=== PATIENT | female | born 1955 | race Caucasian/White ===

== ENCOUNTER 2020-11-11 10:30 | Observation (INO) ==
[2020-11-11] MEDS ORDERED: Pantoprazole VIAL 40 MG VIAL IV ONE (10:45)
[2020-11-11] MEDS ORDERED: Lactated Ringers 1000 ml BAG 1,000 ML IV ONE (10:45)
[2020-11-11 10:54] LABS: ABS Lymphocytes 1.7 10^3/ul (1.0-4.8); ABS Monocytes 0.5 10^3/ul (0-0.8); ABS Neutrophils 5.7 10^3/ul (1.5-7.7); Eosinophil % 0.1 %; Hematocrit 33 % (35-47); Hemoglobin 11.2 g/dL (12.0-16.0); Lymphocyte % 20.9 %; Mean Corpuscular HGB Conc 35 g/dL (31-36); Mean Corpuscular Hemoglobin 32 pg (27-31); Mean Corpuscular Volume 93 fL (80-97); Mean Platelet Volume 7.2 fL (7.4-10.4); Nucleated Red Blood Cells % 0.1; Platelet Count 261 10^3/uL (150-450); Red Blood Count 3.48 10^6 /uL (3.70-4.87); Red Cell Distribution Width 12 % (10-15); White Blood Count 7.9 10^3/uL (3.5-10.8)
[2020-11-11 11:10] LABS: ALT 11 U/L (7-52); AST 15 U/L (13-39); Albumin 3.9 g/dL (3.2-5.2); Albumin/Globulin Ratio 1.7 (1-3); Alkaline Phosphatase 68 U/L (35-149); Anion Gap 6 mmol/L (2-11); Blood Urea Nitrogen 27 mg/dL (6-24); CO2 Carbon Dioxide 26 mmol/L (22-32); Calcium 8.7 mg/dL (8.6-10.3); Chloride 102 mmol/L (101-111); EGFR African American 116.5 (>60); EGFR Non-African American 96.3 (>60); Globulin 2.3 g/dL (2-4); Glucose 103 mg/dL (70-100); Sodium 134 mmol/L (135-145); Total Protein 6.2 g/dL (6.4-8.9)
[2020-11-11 11:15] LABS: Activated Partial Thrombo Time 24.7 seconds (26.0-38.0); INR 1.15 (0.86-1.15)
[2020-11-11] MEDS ORDERED: Ondansetron 4 mg VIAL 2 MG/ML 2 ml VIAL IV ONE (11:15)
[2020-11-11 11:18] LABS: Troponin I 0.03 ng/mL (<0.03)
[2020-11-11 11:35] LABS: Rapid COVID-19 Molecular Undetected (Undetected)
[2020-11-11] MEDS ORDERED: Pantoprazole 80 mg in NS BAG 80 MG/250 ML BAG IV ONE (13:55)
[2020-11-11] MEDS ORDERED: Lactated Ringers 1000 ml BAG 1,000 ML IV SCH (15:00)
[2020-11-11 20:19] LABS: Hematocrit 28 % (35-47); Hemoglobin 9.9 g/dL (12.0-16.0)
[2020-11-11] MEDS ORDERED: Pantoprazole 80 mg in NS BAG 80 MG/250 ML BAG IV SCH (23:55)
[2020-11-12] MEDS: Pantoprazole 80 mg in NS BAG 80 MG/250 ML BAG IV SCH ×2 (01:54→13:49)
[2020-11-12 02:24] LABS: Hematocrit 26 % (35-47); Hemoglobin 9.1 g/dL (12.0-16.0)
[2020-11-12] MEDS ORDERED: fentaNYL 100 mcg/2 ml 50 MCG/ML VIAL ONE (08:07)
[2020-11-12] MEDS ORDERED: Midazolam 10 mg/10 ml VIAL 1 mg/ml 10 ml VIAL (10 mg) ONE (08:07)
[2020-11-12 10:06] LABS: ABS Lymphocytes 1.7 10^3/ul (1.0-4.8); ABS Monocytes 0.3 10^3/ul (0-0.8); ABS Neutrophils 2.2 10^3/ul (1.5-7.7); Eosinophil % 1.1 %; Hematocrit 27 % (35-47); Hemoglobin 9.4 g/dL (12.0-16.0); Lymphocyte % 40.1 %; Mean Corpuscular HGB Conc 34 g/dL (31-36); Mean Corpuscular Hemoglobin 32 pg (27-31); Mean Corpuscular Volume 94 fL (80-97); Mean Platelet Volume 7.4 fL (7.4-10.4); Nucleated Red Blood Cells % 0.1; Platelet Count 220 10^3/uL (150-450); Red Blood Count 2.92 10^6 /uL (3.70-4.87); Red Cell Distribution Width 12 % (10-15); White Blood Count 4.2 10^3/uL (3.5-10.8)
[2020-11-12 10:26] LABS: Anion Gap 5 mmol/L (2-11); Blood Urea Nitrogen 10 mg/dL (6-24); CO2 Carbon Dioxide 25 mmol/L (22-32); Calcium 8.4 mg/dL (8.6-10.3); Chloride 107 mmol/L (101-111); EGFR African American 118.7 (>60); EGFR Non-African American 98.1 (>60); Glucose 99 mg/dL (70-100); Potassium 3.9 mmol/L (3.5-5.0); Sodium 137 mmol/L (135-145)
[2020-11-12 10:38] LABS: Troponin I 0.06 ng/mL (<0.03)
[2020-11-12 11:57] VITALS: BP 113/68
[2020-11-12 13:18] LABS: Hematocrit 28 % (35-47); Hemoglobin 9.7 g/dL (12.0-16.0)
[2020-11-12 14:36] LABS: Troponin I 0.04 ng/mL (<0.03)
== END 2020-11-12 17:28 | disposition home or self-care (01) ==
LOC: ED 10:30 → MEDTELE 10:30
PROVIDERS: ADMIT Internal Medicine; ATTEND Internal Medicine